=== PATIENT | male | born 1980 | race Caucasian/White ===

== ENCOUNTER 2016-05-30 16:49 | Inpatient (IN) | payer MEDICAID ==
[~2016-05-30] VITALS: Ht 167.6 cm; Wt 60.8 kg
[2016-05-30 16:50] VITALS: BP 134/117
--- NOTE | 2016-05-30 16:51 | NUR ---
Fahad zaman in [facility] - 05/30/16 at 1652 by SAI Patient to bed .
--- NOTE | 2016-05-30 16:52 | NUR ---
Patient to bed 01 via wheelchair per FERNANDO Reid.
--- NOTE | 2016-05-30 16:54 | NUR ---
PT CAME TO ER W/ C/O DIFFICULTY AMBULATING SECONDARY TO BODY CRAMPING.PT STATES HE VOMITTED 6 X TODAY AND HAS DIARRHEA.PT WAS IN TERRIBLE PAIN W/PAIN SCALE OF 10/10.PAIN STARTED AT FOOT GOING TO HIS NECK.DENIES CP/SOB/ TRAUMA.PT IS AAOX4;HOB ELEVATED;NEEDS ATTENDED;SAFETY PRECAUTION INSTITUTED;ALL MONITORS PLACED IN;MD MADE AWARE OF PT'S CONDITON.
[2016-05-30] MEDS ORDERED: NACL 0.9% 1,000 ML IV ONE ×2 (16:55→17:55)
[2016-05-30] MEDS ORDERED: HYDROmorphone 1 MG/ML AMP IVP ONE (16:55)
[2016-05-30] MEDS ORDERED: ONDANSETRON 4 MG/2 ML VIAL IVP ONE (16:55)
[2016-05-30 17:11] LABS: HEMATOCRIT 54.3 % (36-52); HEMOGLOBIN 17.7 g/dL (12.0-18.0); MEAN CORPUSCULAR HEMOGLOBIN 29 pg (27-31); MEAN CORPUSCULAR HGB CONC 33 g/dL (33-37); MEAN CORPUSCULAR VOLUME 89 fL (80-94); PLATELET COUNT (AUTO) 302 K/uL (140-450); RED BLOOD CELL COUNT(AUTO) 6.12 MIL/uL (4.20-6.10); RED CELL DISTRIBUTION WIDTH 12.6 % (11.6-13.7); WHITE BLOOD COUNT (AUTO) 23.2 K/uL (4.8-10.8)
[2016-05-30 17:27] LABS: BAND % (MANUAL) 1 % (0-8); LYMPHOCYTES % (MANUAL) 4 % (20-46); MONOCYTES % (MANUAL) 5 % (5-12); NEUTROPHILS % (MANUAL) 90 (43-65); PLATELET ESTIMATE ADEQUATE
--- NOTE | 2016-05-30 17:31 | NUR ---
Dr. Velasquez evaluating patient at bedside.
[2016-05-30 17:34] LABS: ANION GAP 23.1 (8-16); CALCIUM 10.1 mg/dL (8.5-10.1); CARBON DIOXIDE 22.8 mmol/L (21-32); CREATININE 2.4 mg/dL (0.6-1.3); POTASSIUM 3.9 mmol/L (3.5-5.1)
[2016-05-30 17:46] LABS: ALBUMIN 5.5 g/dL (3.4-5.0); TOTAL BILIRUBIN 0.8 mg/dL (0.0-1.0); TOTAL PROTEIN, SERUM 9.5 g/dL (6.4-8.2)
--- NOTE | 2016-05-30 18:20 | NUR ---
PT LYING ON BED COMFORTABLY;VERBALIZES PAIN IS REDUCED FROM10/10 TO 6/10.NO ACUTE DISTRESS NOTED AT THIS TIME;WILL CONTINUE TO MONITOR PT.
[2016-05-30] MEDS ORDERED: ONDANSETRON 4 MG/2 ML VIAL IVP PRN (18:40)
[2016-05-30] MEDS ORDERED: ACETAMINOPHEN 325 MG TAB PO PRN (18:40)
[2016-05-30] MEDS ORDERED: ZOLPIDEM 5 MG TAB PO PRN (18:40)
--- NOTE | 2016-05-30 18:50 | NUR ---
Patient will be admitted to care of Dr Matthews. Admited to [facility] . Will go to room 106 a. Belongings list completed. Report to harinder Earl.
[2016-05-30 19:10] VITALS: BP 131/78
--- NOTE | 2016-05-30 19:10 | NUR ---
RECEIVED REPORT FROM ИРИНА CHARGE NURSE FOR CONTINUITY OF CARE. 36 Y.O. MALE BROUGHT TO TELE UNIT WITH DX: RHABDOMYOLYSIS, ARF, DEHYDRATION. PATIENT IS A&OX4, DISCUSSED PLAN OF CARE WITH PATIENT, VERBALIZED UNDERSTANDING. ORIENTED PATIENT TO ROOM AND APPLIED WRISTBANDS, MRSA SCREEN COLLECTED. SHIFT ASSESSMENT DONE, VS TAKEN, STABLE. NO S/S OF RESPIRATORY DISTRESS NOTED ON ROOM AIR. PATIENT STATES LOWER BACK PAIN, WILL FOLLOW UP WITH MD FOR ORDER. PATIENT ABLE TO AMBULATE TO RESTROOM. CALL LIGHT PLACED WITHIN REACH AND PT EDUCATED TO USE FOR ASSISTANCE. FAMILY MEMBER AT BEDSIDE. WILL CONTINUE TO MONITOR.
[2016-05-30 19:41] LABS: CKMB RELATIVE INDEX 1.2 (0.0-2.5)
[2016-05-30 19:42] LABS: CREATINE KINASE MB 4.3 ng/mL (0-3.6)
[2016-05-30 19:45] LABS: MAGNESIUM 3.4 mg/dL (1.8-2.4); PHOSPHORUS 4.7 mg/dL (2.5-4.9)
[2016-05-30] MEDS: NACL 0.9% 1,000 ML IV SCH (19:52)
--- NOTE | 2016-05-30 19:52 | NUR ---
DUE IVPB ANTIBIOTICS ADMINISTERED, NO REACTION NOTED. PROVIDED PATIENT WITH DINNER PER REGULAR DIET. CALL LIGHT WITHIN REACH.
[2016-05-30 19:57] LABS: FREE T4 (FREE THYROXINE) 1.42 ng/dL (0.76-1.46); THYROID STIMULATING HORMONE 2.26 uIU/mL (0.34-3.76)
--- NOTE | 2016-05-30 20:16 | NUR ---
SPOKE WITH DR. RAI REGARDING ORDER FOR PAIN MED.
[2016-05-30] MEDS: MORPHINE SULFATE 4 MG/ML SYR IVP PRN (21:00)
--- NOTE | 2016-05-30 21:00 | NUR ---
DUE MEDICATION ADMINISTERED, PT C/O 10/30 PAIN IN LOWER BACK MEDICATED PER MD ORDER. WILL CONTINUE TO MONITOR.
[2016-05-30] MEDS ORDERED: INFLUENZA VIRUS VACCINE QUAD 0.5 ML SYR IMVAC PRN (23:55)
[2016-05-31] VITALS: BP 102/61
[2016-05-31] MEDS: NACL 0.9% 1,000 ML IV SCH ×4 (00:03→21:44)
--- NOTE | 2016-05-31 00:16 | NUR ---
VS TAKEN, STABLE. PATIENT DENIES PAIN. ALL NEEDS MED AT THIS TIME. WILL CONTINUE TO MONITOR.
--- NOTE | 2016-05-31 02:08 | NUR ---
PATIENT IS SLEEPING. NO S/S OF DISTRESS NOTED. IV INFUSING WELL.
--- NOTE | 2016-05-31 04:36 | NUR ---
REPLACED IV FLUIDS. PATIENT DENIES PAIN. ALL NEEDS MET AT THIS TIME. CALL LIGHT WITHIN REACH.
--- NOTE | 2016-05-31 06:02 | NUR ---
PT IS AWAKE AMBULATED TO RESTROOM FOR AM CARE. NO S/S OF DISTRESS OR DISCOMFORT NOTED. CALL LIGHT WITHIN REACH.
[2016-05-31 06:13] LABS: BASOPHILS # (AUTO) 0.1 K/uL (0.00-0.22); BASOPHILS % (AUTO) 1.4 % (0.0-2.0); EOSINOPHILS # (AUTO) 0.2 K/uL (0-0.4); HEMATOCRIT 40.7 % (36-52); HEMOGLOBIN 13.7 g/dL (12.0-18.0); LYMPHOCYTES # (AUTO) 1.7 K/uL (2.0-11.5); LYMPHOCYTES % (AUTO) 16.6 % (20.5-51.1); MEAN CORPUSCULAR HEMOGLOBIN 30 pg (27-31); MEAN CORPUSCULAR HGB CONC 34 g/dL (33-37); MEAN CORPUSCULAR VOLUME 90 fL (80-94); MONOCYTES # (AUTO) 0.8 K/uL (0.8-1.0); MONOCYTES % (AUTO) 7.4 % (1.7-9.3); NEUTROPHILS # (AUTO) 7.3 K/uL (1.8-7.7); NEUTROPHILS % (AUTO) 72.6 % (42.2-75.2); PLATELET COUNT (AUTO) 201 K/uL (140-450); RED BLOOD CELL COUNT(AUTO) 4.51 MIL/uL (4.20-6.10); RED CELL DISTRIBUTION WIDTH 12.6 % (11.6-13.7); WHITE BLOOD COUNT (AUTO) 10.1 K/uL (4.8-10.8)
[2016-05-31 06:38] LABS: ANION GAP 12.6 (8-16); CALCIUM 7.1 mg/dL (8.5-10.1); CARBON DIOXIDE 24.2 mmol/L (21-32); CREATININE 0.9 mg/dL (0.6-1.3); POTASSIUM 3.8 mmol/L (3.5-5.1)
[2016-05-31 06:45] LABS: INR 1.1 (0.8-1.2); PARTIAL THROMBOPLASTIN TIME 27.2 secs (22-35.6); PROTHROMBIN TIME 10.4 secs (10.8-13.4)
[2016-05-31 06:48] LABS: MAGNESIUM 2.2 mg/dL (1.8-2.4); PHOSPHORUS 3.8 mg/dL (2.5-4.9)
--- NOTE | 2016-05-31 07:14 | NUR ---
ASSUMED CONTINUITY OF CARE. NO SIGNS AND SYMPTOMS OF ACUTE DISTRESS NOTED. INITIAL ASSESSMENT DONE. KEEP COMFORTABLE ON BED. EXPLAINED DIAGNOSIS, PLAN OF CARE, PAIN MANAGEMENT TEACHING, USE OF CALL LIGHT/BED/TV/BATHROOM. VERBALIZED UNDERSTANDING. CALL LIGHT WITHIN REACH.
--- NOTE | 2016-05-31 07:20 | NUR ---
ENDORSED PATIENT TO DAY SUPERVISOR SEWER SYSTEM FOR CONTINUITY OF CARE, PATIENT IS IN STABLE CONDITION.
[2016-05-31 08:00] VITALS: BP 96/54
[2016-05-31 08:13] LABS: T4 (THYROXINE) 12.5 ug/dL (4.5-12.0)
[2016-05-31 08:33] LABS: HEMOGLOBIN A1C 5.7 % (4.8-5.6)
--- NOTE | 2016-05-31 08:44 | NUR ---
PATIENT HAS BEEN SCREENED AND CATEGORIZED MODERATE NUTRITION RISK. PATIENT WILL BE SEEN WITHIN 3-5 DAYS OF ADMISSION. 06/02/16-06/04/[address]
[2016-05-31] MEDS: DOCUSATE SODIUM 100 MG GELCAP PO SCH (08:45)
--- NOTE | 2016-05-31 11:10 | NUR ---
AMBULATES ON HALLWAY ACCOMPANIED BY PT. -NATANAEL. TOLERATED WELL. NO C/O PAIN. NO SOB, NOTED.
[2016-05-31 12:00] VITALS: BP 111/68
[2016-05-31] MEDS ORDERED: HYDROcodone/APAP 7.5/325 MG 1 TAB PO PRN (16:05)
[2016-05-31 17:17] LABS: APPEARANCE,URINE CLEAR (CLEAR); BILIRUBIN,URINE NEGATIVE (NEGATIVE); BLOOD, URINE NEGATIVE (NEGATIVE); COLOR,URINE YELLOW (YELLOW); LEUKOCYTE ESTERASE ,URINE NEGATIVE (NEGATIVE); NITRITE, URINE NEGATIVE (NEGATIVE); PH,URINE 6.5 (5.0-9.0); PROTEIN,URINE NEGATIVE (NEGATIVE); UGLUCOSE NEGATIVE (NEGATIVE); UROBILINOGEN,URINE 0.2 EU/dL (0.2 - 1)
[2016-05-31 17:29] LABS: BACTERIA,URINE RARE /HPF (None Seen); RBC,URINE 0-3 /HPF (0-5); SQUAMOUS EPITHELIAL CELL,UR None Seen /LPF (0-3 (FEW)); WBC,URINE 0-3 /HPF (0-5)
[2016-05-31 17:32] LABS: AMPHETAMINE, URINE POS. ng/ml (NEG <=1000); BARBITURATE, URINE NEG. ng/ml (NEG <=200); BENZODIAZEPINE, URINE NEG. ng/mL (NEG <=200); CANNABINOID, URINE POS. ng/mL (NEG <=50); COCAINE, URINE NEG. ng/mL (NEG <=300); OPIATE, URINE NEG. ng/mL (NEG <=2000); PHENCYCLIDINE SCREEN,URINE NEG. ng/mL (NEG <=25)
--- NOTE | 2016-05-31 19:11 | NUR ---
BEDSIDE REPORT GIVEN TO NIHARIKA MILLS -FERNANDO. IVF INFUSING WELL. IN STABLE CONDITION.
--- NOTE | 2016-05-31 19:30 | NUR ---
RECEIVED REPORT FROM DAY CROSSBAND LAYER AT BEDSIDE, PATIENT IS RESTING IN BED WITH FAMILY AT BEDSIDE, PATIENT IS AWAKE AND ALERT AND ORIENTED X4, ON ROOM AIR, NO SOB OR SIGN OF DISTRESS AT THIS TIME, PATIENT HAS IV TO LAC 20G WITH IVF INFUSING WELL, ALSO IV TO RAC, PATENT. PATIENT SKIN IS INTACT. DISCUSSED PLAN OF CARE WITH PATIENT, PATIENT VERBALIZED UNDERSTANDING, PATIENT C/O PAIN IN BACK, WILL ADMINISTER PAIN MED PER MD ORDER. SAFETY MEASURES CHECKED, CALL LIGHT WITHIN REACH. WILL CONTINUE TO MONITOR.
[2016-05-31] MEDS: MORPHINE SULFATE 4 MG/ML SYR IVP PRN (20:32)
[2016-05-31] MEDS: CALCIUM CARB 600 MG TAB PO SCH (20:32)
--- NOTE | 2016-05-31 20:44 | NUR ---
PM MEDS ADMINISTERED, PATIENT TOLERATED WELL, CALL LIGHT WITHIN REACH. WILL CONTINUE TO MONITOR.
--- NOTE | 2016-05-31 22:14 | NUR ---
PATIENT RESTING IN BED, NO SIGN OF DISTRESS AT THIS TIME, CALL LIGHT WITHIN REACH. WILL CONTINUE TO MONITOR.
[2016-06-01] VITALS: BP 101/50
--- NOTE | 2016-06-01 00:52 | NUR ---
PATIENT RESTING IN BED, NO SOB OR SIGN OF DISTRESS, VITAL SIGNS STABLE, CALL LIGHT WITHIN REACH. WILL CONTINUE TO MONITOR
--- NOTE | 2016-06-01 03:20 | NUR ---
PATIENT SLEEPING, NO SOB OR SIGN OF DISTRESS AT THIS TIME, CALL LIGHT WITHIN REACH. WILL CONTINUE TO MONITOR.
[2016-06-01] MEDS: NACL 0.9% 1,000 ML IV SCH ×2 (04:00→10:40)
[2016-06-01 05:55] LABS: BASOPHILS # (AUTO) 0.2 K/uL (0.00-0.22); BASOPHILS % (AUTO) 3.6 % (0.0-2.0); EOSINOPHILS # (AUTO) 0.2 K/uL (0-0.4); EOSINOPHILS % (AUTO) 3.9 % (0.0-4.0); HEMATOCRIT 37.5 % (36-52); HEMOGLOBIN 12.4 g/dL (12.0-18.0); LYMPHOCYTES % (AUTO) 38.4 % (20.5-51.1); MEAN CORPUSCULAR HEMOGLOBIN 30 pg (27-31); MEAN CORPUSCULAR HGB CONC 33 g/dL (33-37); MEAN CORPUSCULAR VOLUME 90 fL (80-94); MONOCYTES # (AUTO) 0.5 K/uL (0.8-1.0); MONOCYTES % (AUTO) 8.8 % (1.7-9.3); NEUTROPHILS # (AUTO) 2.4 K/uL (1.8-7.7); NEUTROPHILS % (AUTO) 45.3 % (42.2-75.2); PLATELET COUNT (AUTO) 177 K/uL (140-450); RED BLOOD CELL COUNT(AUTO) 4.18 MIL/uL (4.20-6.10); RED CELL DISTRIBUTION WIDTH 12.9 % (11.6-13.7); WHITE BLOOD COUNT (AUTO) 5.3 K/uL (4.8-10.8)
[2016-06-01 06:30] LABS: ANION GAP 11.4 (8-16); CALCIUM 7.2 mg/dL (8.5-10.1); CARBON DIOXIDE 23.7 mmol/L (21-32); CREATININE 0.7 mg/dL (0.6-1.3); POTASSIUM 4.1 mmol/L (3.5-5.1)
--- NOTE | 2016-06-01 06:36 | NUR ---
PATIENT SLEEPING. NO SOB OR SIGN OF DISTRESS, CALL LIGHT WITHIN REACH. WILL CONTINUE TO MONITOR.
[2016-06-01 06:41] LABS: MAGNESIUM 1.6 mg/dL (1.8-2.4); PHOSPHORUS 2.7 mg/dL (2.5-4.9)
--- NOTE | 2016-06-01 07:05 | NUR ---
ENDORSED REPORT TO DAY CYCLE ANALYST, PATIENT IN STABLE CONDITION.
--- NOTE | 2016-06-01 07:08 | NUR ---
ASSUMED CONTINUITY OF CARE. NO SIGNS AND SYMPTOMS OF ACUTE DISTRESS NOTED. INITIAL ASSESSMENT DONE. EXPLAINED DIAGNOSIS, PLAN OF CARE, PAIN MANAGEMENT TEACHING, USE OF CALL LIGHT/BED/TV/BATHROOM. VERBALIZED UNDERSTANDING. CALL LIGHT WITHIN REACH.
[2016-06-01 08:00] VITALS: BP 103/63
[2016-06-01] MEDS ORDERED: MAG SULF 2000 MG/WATER PREMIX 50 ML IV SCH (08:30)
[2016-06-01] MEDS: CALCIUM CARB 600 MG TAB PO SCH (08:46)
[2016-06-01] MEDS: DOCUSATE SODIUM 100 MG GELCAP PO SCH (08:46)
[2016-06-01 12:00] VITALS: BP 107/59
--- NOTE | 2016-06-01 12:00 | NUR ---
VITALS SIGNS STABLE. NO C/O PAIN. WILL MONITOR.
[2016-06-01] MEDS ORDERED: CALC600C7 PO (12:51)
[2016-06-01] MEDS ORDERED: ONDA4ODT8 PO (12:52)
[2016-06-01] MEDS ORDERED: CALC500T2 PO (13:26)
--- NOTE | 2016-06-01 14:35 | NUR ---
EXPLAINED TO PT. AND PT. -NATANAEL ABOUT DIAGNOSIS, DISEASE MANAGEMENT, MD D/C ORDER, D/C INSTRUCTION AND TEACHING, MD FOLLOW-UP, MD D/C PRESCRIPTION LIST EDUCATION, PAIN MANAGEMENT TEACHING. PT. AND PT. -NATANAEL VERBALIZED UNDERSTANDING.
[2016-06-01] MEDS ORDERED: CALCIUM GLUCONATE 10% 1,000 MG in NACL 0.9% 100 ML IV SCH (15:00)
--- NOTE | 2016-06-01 15:06 | NUR ---
PT TOLERATED IV MEDS WELL. WILL CONTINUE TO MONITOR.
--- NOTE | 2016-06-01 16:30 | NUR ---
D/C HOME VIA WHEELCHAIR ACCOMPANIED BY PT. -NATANAEL. AWAKE, ALERT, AND ORIENTED X4. SPEECH CLEAR. NO C/O PAIN. IN STABLE CONDITION. INFORMED CHARGE NURSE PRERNA RANDHAWA.
== END 2016-06-01 16:30 | disposition home or self-care (01) | DRG 460 ==
LOC: MED 16:49 → MTU 18:28
PROVIDERS: ADMIT Family Medicine; ATTEND Family Medicine
DX: N17.0 Acute kidney failure with tubular necrosis (principal); R65.11 Systemic inflammatory response syndrome (SIRS) of non-infectious origin with acute organ dysfunction; G92 Toxic encephalopathy; M62.82 Rhabdomyolysis; E87.8 Other disorders of electrolyte and fluid balance, not elsewhere classified; F15.129 Other stimulant abuse with intoxication, unspecified; F12.929 Cannabis use, unspecified with intoxication, unspecified; E83.51 Hypocalcemia; E83.42 Hypomagnesemia
CPT/HCPCS: 36415; 71010; 76700; 80048; 80053; 80305; 81001; 82550; 82553; 83036; 83605; 83690; 83735; 83874; 84100; 84436; 84439; 84443; 84479; 84484; 85025; 85379; 85610; 85730; 87040; 87081; 87086; 90658; 93005; 96361; 96374; 96375; 99285; J0610; J0696; J1170; J1644; J2270; J2405; J3475; J7030; J7042; J7060; Q0092

== ENCOUNTER 2017-11-25 14:39 | Emergency (ER) | payer SELFPAY ==
[~2017-11-25] VITALS: Ht 162.6 cm; Wt 61.2 kg
[~2017-11-25 14:39] MED LIST: CALC500T2 PO; ONDA4ODT8 PO
[2017-11-25 14:47] VITALS: BP 109/68
--- NOTE | 2017-11-25 14:50 | NUR ---
37y/m bib c/o lt elbow pain s/p pulling stuff at work 2 days ago, unable to lift arm. Pain 10/; < 3 cap refill, pt is not able to move lt arm at this time, pt states lt arm hurts to much to move. pt is aaox4; vss; bed down; bedrail up x 1; er md aware and notified of pt status. med hx: none rx: none
--- NOTE | 2017-11-25 15:04 | NUR ---
Patient being evaluated by physician at bedside.
[2017-11-25] MEDS ORDERED: KETOROLAC 60 MG/2 ML VIAL IM ONE (15:05)
--- NOTE | 2017-11-25 15:10 | NUR ---
x-ray at bedside
[2017-11-25 16:26] VITALS: BP 115/69
--- NOTE | 2017-11-25 16:26 | NUR ---
Patient discharged with v/s stable. Written and verbal after care instructions given and explained. Patient alert, oriented and verbalized understanding of instructions. Ambulatory with steady gait. All questions addressed prior to discharge. ID band removed. Patient advised to follow up with PMD. Rx of norco and motrin given. Patient educated on indication of medication including possible reaction and side effects. Opportunity to ask questions provided and answered.
== END 2017-11-25 16:26 | disposition home or self-care (01) ==
LOC: MED 14:39
DX: S53.402A Unspecified sprain of left elbow, initial encounter (principal); F17.290 Nicotine dependence, other tobacco product, uncomplicated; Z79.899 Other long term (current) drug therapy; X58.XXXA Exposure to other specified factors, initial encounter; Y93.89 Activity, other specified; Y92.89 Other specified places as the place of occurrence of the external cause; Y99.8 Other external cause status
CPT/HCPCS: 73080; 96372; 99284; J1885; Q0092